=== PATIENT | male | born 1940 | race Caucasian/White ===

== ENCOUNTER → 2017-11-15 | Outpatient (CLI) | payer MEDICARE, BC ==
[~2017-11-15] MED LIST: ARICEPT 5 MG TAB5 MG PO; ASPIR 8181 MG PO; COUMADIN 1MG TAB1 M1 PO; COUMADIN 5 MG TA5 M1 PO; ENOXAPARIN40 MG/0.1 SUBQ; FLOMAX0.4 MG PO; LIPITOR10 MG PO; LOPRESSOR50 PO; LUMIGAN2.5 M1 OP; OXYCODONE HCL 55 MG PO; PRESERVISION A1 EAC2 PO; SORINE 80 MG TA80 M1 PO
== END ==
LOC: M.NUC 11-10 16:56
DX: T84.033A Mechanical loosening of internal left knee prosthetic joint, initial encounter (principal); Z96.652 Presence of left artificial knee joint

== ENCOUNTER 2018-01-09 06:50 | Inpatient (IN) | payer MEDICARE, BC ==
[2017-12-29 09:15] LABS: ABSOLUTE EOSINOPHILS 0.2 thou/uL (0.0-0.7); ABSOLUTE LYMPHOCYTES 1.6 thou/uL (0.8-5.3); ABSOLUTE MONOCYTES 0.6 thou/uL (0.0-1.2); ABSOLUTE NEUTROPHILS 2.9 thou/uL (1.6-8.1); BASOPHILS 0.9 %; EOSINOPHILS 3.8 %; HEMATOCRIT 38.7 % (42.0-52.0); HEMOGLOBIN 12.9 gm/dL (14.0-18.0); LYMPHOCYTES 30.8 %; MCH 30.4 pg (26.0-34.0); MCHC 33.4 g/dL (28.0-37.0); MCV 90.9 fL (80.0-100.0); MONOCYTES 10.4 %; MPV 8.4 fl. (7.2-11.1); NUCLEATED RBCS 0 /100WBC; PLATELET COUNT* 169 thou/uL (150-400); POLYS 54.1 %; RBC 4.26 mil/uL (4.50-6.00); RDW-CV 14.5 % (10.5-14.5); WBC 5.3 thou/uL (4.0-11.0)
[2017-12-29 09:26] LABS: APTT 37.4 Seconds (25.0-31.3); INR 2.6; PROTIME 24.7 Seconds (9.20-11.50)
[2017-12-29 09:29] LABS: ALBUMIN 3.2 g/dL (3.4-5.0); CALCIUM 9.2 mg/dL (8.5-10.1); CREATININE 0.9 mg/dL (0.6-1.3); POTASSIUM 4.4 mmol/L (3.5-5.1); TOTAL BILIRUBIN 0.4 mg/dL (<0.1-1.0)
[2017-12-29 10:38] LABS: ESR (SEDRATE) 38 mm/hr (0-20)
[~2018-01-09] VITALS: Ht 182.9 cm; Wt 97.5 kg
[~2018-01-09 06:50] MED LIST changes: -ENOXAPARIN40 MG/0.1 SUBQ; -LUMIGAN2.5 M1 OP; -OXYCODONE HCL 55 MG PO
[2018-01-09] MEDS ORDERED: LUMIGAN2.5 M1 OP (07:39)
[2018-01-09 08:00] VITALS: BP 129/63
[2018-01-09 08:35] LABS: INR 1.2; PROTIME 11.4 Seconds (9.20-11.50)
--- NOTE | 2018-01-09 12:31 | NUR ---
DEFER ORDERS TO PT
[2018-01-09 16:00] VITALS: BP 125/64
--- NOTE | 2018-01-09 17:21 | NUR ---
PATIENT ARRIVED ON UNIT FROM PACU AT 1230. ALERT AND ORIENTED X'S 4. VITAL SIGNS AND SPO2 STABLE. IV CLEAN, FLUIDS INFUSING. PAIN WELL CONTROLLED WITH PAIN MEDS. TOLERATED DIET, NO NAUSEA AND VOMITING. VOIDED WITHOUT ISSUE. SCD'S, TEDS, YELLOW SOCKS IN PLACE. CAPNO IN PLACE. COMPLETED HOURLY ROUNDING. CALL LIGHT WITHIN REACH. WILL CONTINUE TO MONITOR.
[2018-01-09 21:00] VITALS: BP 149/72
[2018-01-10 00:09] VITALS: BP 141/74
[2018-01-10 04:31] VITALS: BP 149/69
[2018-01-10 04:57] LABS: HEMOGLOBIN 11.7 gm/dL (14.0-18.0)
--- NOTE | 2018-01-10 07:41 | NUR ---
PAGED BANDAY REGARDING CONFUSION/COMBATIVENESS/IMPULSIVENESS. BP 156/72, PULSE 79, O2 SAT 94% ON RA. ASKED IF PATIENT WOULD NEED CT OF HIS HEAD DUE TO CHANGE IN MENTAL STATUS, NO NEW ORDERS AT THIS TIME.
[2018-01-10 08:08] VITALS: BP 156/72
--- NOTE | 2018-01-10 08:08 | NUR ---
PATIENT ALERT AND ORIENTED X 3, FORGETFUL AT THE START OF THE SHIFT. IT GOT LATER IN THE NIGHT PATIENT BECAME MORE CONFUSED. HE BEGIN TRYING TO CLIMB OUT OF BED, SWINGING HIS OPERATIVE KNEE OVER THE SIDE RAILS. PATIENT MOVED AROUND IN THE BED SO MUCH HIS SURGICAL DRESSING BECAME SATURED AND HE PULLED IT OFF. PHYSICIAN NOTIFIED OF STATUS CHANGE. ZYPREXA ORDERED AND ADMINISTERED WITH NO SUCCESS. PATIENT PULLED OUT IV AND STARTED TO HAVE MORE HALLUCINATIONS AFTER ZYPREXA. NEW SURGICAL DRESSING APPLIED, ORTHO AWARE. RESIDENT LOOKED AT INCISION THIS MORNING AND SAID ITS OK. DRAINAGE NOTED, REINFORCED BY ORTHO RESIDENT WITH ABD PADS AND ACEWRAP. PATIENT DID NOT SLEEP AT ALL AND SEEMED TO BE GETTING MORE CONFUSED. PHYSICIAN CONTACTED A SECOND TIME. THE PHYSICIAN WAS MADE AWARE THAT PATIENT WAS CLIMBING OUT OF BED AND HALLUCINATING AFTER PREVIOUS DOSE OF ZYPREXA. ORDERS WERE RECEIVED FOR AN ADDITIONAL DOSE AND THE PHYSICIAN DID NOT WANT TO DO ANY FURTHER ORDERS AT THAT TIME. I DID NOT GIVE ZYPREXA DUE TO LAST DOSE OUTCOME AND THE PATIENT WAS SLEEPING AT THAT TIME. HE ONLY SLEPT FOR MAYBE THIRTY MINUTES. NEW IV PLACED IN LEFT FOREARM, FLUIDS INFUSING PER ORDER. , JOAN, CALLED THIS MORNING TO ASK ABOUT BASLINE. JOAN STATED THAT IT IS NORMAL FOR THE PATIENT TO BE MORE CONFUSED AFTER SURGERY AND THAT SHE THINKS HE IS IN THE EARLY STAGES OF DEMENTIA. JOAN STATES THAT PATIENT HAD TO BE RESTRAINED AFTER HE HAD OPEN HEART SUGERY. PATIENT WILL BE MOVED TO A CLOSER ROOM AND NURSING WILL CLOSELY MONITOR. BED ALARM IN USE.
[2018-01-10 09:22] LABS: ABSOLUTE LYMPHOCYTES 1.6 thou/uL (0.8-5.3); ABSOLUTE MONOCYTES 1.6 thou/uL (0.0-1.2); ABSOLUTE NEUTROPHILS 6.8 thou/uL (1.6-8.1); BASOPHILS 0.3 %; LYMPHOCYTES 15.6 %; MCH 31.1 pg (26.0-34.0); MCHC 33.5 g/dL (28.0-37.0); MCV 92.8 fL (80.0-100.0); MONOCYTES 15.6 %; MPV 8.8 fl. (7.2-11.1); NUCLEATED RBCS 0 /100WBC; PLATELET COUNT* 161 thou/uL (150-400); POLYS 68.5 %; RBC 3.78 mil/uL (4.50-6.00); RDW-CV 14.4 % (10.5-14.5)
[2018-01-10 09:24] LABS: CALCIUM 8.8 mg/dL (8.5-10.1); MAGNESIUM 1.6 mg/dL (1.8-2.4); POTASSIUM 4.2 mmol/L (3.5-5.1)
--- NOTE | 2018-01-10 10:04 | NUR ---
PATIENT MOVED CLOSER TO NURSING STATION DUE TO IMPULSIVENESS. BED ALARM SET.
--- NOTE | 2018-01-10 14:25 | NUR ---
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 SW completed initial assessment, introduced self, and SW role. Pt was sleepy but talked at times; pt helped answer questions. Pt lives at home with pt ; pt drives and can help provide any assistance needed. Pt might have a RW that was his 's aunt's walker but they plan to check to make sure it is available and the appropriate size for pt. NESHA explained that one could be ordered for pt and be delivered prior to pt dc if needed. NESHA called and checked benefits with [employer] and Homa provided approval that pt is eligible and can receive walker through [employer] ph [phone] fax [phone]. SW will fax order to have ready in case pt needs RW at dc after all. Pt and pt preference for HH services at dc pt/family preference for HH that goes to [place], [facility]. NESHA faxed referral information to [facility] [phone] is fax, is phone number. SW to continue to follow to assist with safe dc planning.
[2018-01-10 16:00] VITALS: BP 150/68
--- NOTE | 2018-01-10 16:22 | NUR ---
PATIENT REMAINS DISORIENTED BUT HAS BEEN COOPERATIVE WITH THERAPY AND NURSING THIS AFTERNOON. WILL SOMETIMES ANSWER YES/NO QUESTIONS. EATING SMALL AMOUNT OF MEALS. VOIDING PER URINAL WITH SOME INCONTINENCE WELL. DRESSING TO KNEE REINFORCED BY ORTHO THIS AM, PATIENT HAS REMOVED THE MINERVA WRAP AND GAUZE TWICE THIS SHIFY. MEPILEX INTACT WITH MODERATE AMOUNT OF SANGUINEOUS DRAINAGE. REFUSED SCD'S. BED ALARM IN USE. AT BEDSIDE. WILL CONTINUE TO MONITOR.
[2018-01-10 20:00] VITALS: BP 167/74
[2018-01-10 23:47] VITALS: BP 120/69
[2018-01-11 04:18] VITALS: BP 142/64
[2018-01-11 04:23] LABS: HEMATOCRIT 32.3 % (42.0-52.0); HEMOGLOBIN 10.9 gm/dL (14.0-18.0)
--- NOTE | 2018-01-11 04:28 | NUR ---
PATIENT RESTING QUIETLY IN BED THIS AM ON HOURLY ROUNDS. ORIENTED TO SELF, CONFUSED AND FORGETFUL. 1:1 SITTER IN ROOM THROUGHOUT THE NIGHT. DENIES PAIN. DRESSING IN PLACE TO LEFT KNEE. VITALS STABLE. WILL CONTINUE TO MONITOR.
[2018-01-11 08:00] VITALS: BP 136/72
--- NOTE | 2018-01-11 12:26 | NUR ---
PT.WILL MOST PROBABLY NEED SNF AT DISCHARGE. HE IS UNSTEADY AND GETS EASILY CONFUSED. SPOKE WITH PT.AND . BOTH ARE AGREEABLE. [facility] [place]. CM WILL FAX REFERRAL AND NOTIFY SEAN/GIO.
[2018-01-11 15:41] VITALS: BP 134/62
--- NOTE | 2018-01-11 17:24 | NUR ---
PATIENT REMAINS ALERT AND ORIENTED X1. CONFUSION, BUT COOPERATIVE WITH STAFF. 1:1 OBSERVATION DISCONTINUED THIS AM AT 0930. BED ALARM/CHAIR ALARM IN USE. AT BEDSIDE. DRESSING TO LEFT KNEE DRY AND INTACT. SCD'S IN PLACE. UP TO CHAIR THIS AFTERNOON. BM THIS AM. VOIDING PER URINAL. TOLERATING MEALS. DENIES PAIN. CALL LIGHT WITHIN REACH. WILL CONTINUE TO MONITOR.
[2018-01-11 20:30] VITALS: BP 134/83
[2018-01-11 23:51] VITALS: BP 132/54
[2018-01-12 04:02] VITALS: BP 150/62
--- NOTE | 2018-01-12 06:21 | NUR ---
Confused and impulsive, he was taking off his clothes and throwing them on the floor and trying to get out of bed. He is incontinent of urine and x 2. We've had to check on him or run in there every 30 minutes or less because he sets of the bedalarm. He was so restless I had to notify Dr Weinstein and order was recieved for seroquel which did help him to relax and sleep. Vitals are stable he did request pain meds x 2 for L knee pain.
[2018-01-12 07:58] VITALS: BP 161/72
--- NOTE | 2018-01-12 08:55 | NUR ---
ASSUMED CARE OF PT AROUND 0730 THIS AM.REFER TO ASSESSMENT. PT CALM AND COOPERATIVE THIS AM. DRESSING TO LT KNEE C/D/I. NO C/O PAIN. NO CONCERNS VOICED. CLWR. WCTM.
[2018-01-12 10:59] LABS: INR 1.2; PROTIME 11.8 Seconds (9.20-11.50)
--- NOTE | 2018-01-12 11:26 | NUR ---
PT.'S NOT SURE SHE WANTS PT.TO GO TO [place]. SHE HAS HEARD GOOD THINGS ABOUT [facility] ([facility]). SPOKE WITH VIRGINIE IN ADMISSIONS AT [facility]. FAXED HER REFERRAL [facility]. MADE HER AWARE OF CONFUSION AT NIGHT. MAY GO VISIT [facility] AFTER LUNCH.
[2018-01-12] MEDS ORDERED: OXYCODONE HCL 55 MG PO (12:49)
[2018-01-12 13:27] VITALS: BP 161/72
[2018-01-12] MEDS ORDERED: ENOXAPARIN40 MG/0.1 SUBQ (13:53)
--- NOTE | 2018-01-12 14:06 | NUR ---
WENT TO VISIT [facility] AND LIKED IT. SHE WOULD LIKE TO GO THERE IF THEY WILL ACCEPT HIM. VIRGINIE CALLED BACK AND SAID THEY COULD ACCEPT PT. SHE WILL ARRANGE A VAN FOR 1529. INFORMED. BAR FROM [facility] CAME TO VISIT PT. FAXED DISCHARGE ORDERS AND COPY OF NURSES NOTES FAXED TO VIRGINIE AT THIS TIME. CHART COPIED BY [facility] TO GO WITH PT. KATIE MUSTAFA WILL CALL REPORT.
--- NOTE | 2018-01-12 15:51 | NUR ---
PT DISCHARGED AT THIS TIME WITH ALL BELONGINGS. FAMILY AT PT'S SIDE. REPORT CALLED TO NURSE AT [facility]. [facility] REQUESTING [facility] HEAD FOR PT'S CONFUSION. PHYSICIAN NOTIFIED AND STATES CONFUSION IS FROM PT'S DEMENTIA AND SUNDOWNERS. PHYSICIAN STATES HE WILL CALL NH AND RELAY THAT INFORMATION TO THEM. PT DC'D PER W/C WITH W/C VAN TRANSPORTATION. NO CONCERNS VOICED.
--- NOTE | 2018-02-15 06:50 | OP ---
[address] [address] OPERATIVE REPORT Name: STEVE ESPINO Room: [address]#: [id number] Admission: 01/09/18 Attend Phys: Adan Tilley Discharge: 01/12/18 Date of : 42 Report #: [id number] THIS REPORT FOR: //name// CC: Arturo Calloway DATE OF SERVICE: 01/09/2018 PREOPERATIVE DIAGNOSIS: Left failed patella, status post total knee arthroplasty. 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 PROCEDURE: 1. Revision of a left patella implant and left patellar realignment with a lateral release and imbrication medially. 2. Replacement of the tibial bearing. SURGEON: Kvgn Yoon DO. ANESTHESIA: General endotracheal. COMPLICATIONS: None. ANTIBIOTICS: 2 grams Ancef IVPB 30 minutes prior to incision. IMPLANTS: Vanguard asymmetric patella 34 mm x 8.5 mm, a PS tibial bearing E1 Antioxidant and a locking bar, one bag of Palacos cement. INDICATIONS: The patient is a 78-year-old male who has had a total knee arthroplasty done at a different location upwards of 15-20 years ago. He is here today as he has significant pain with flexion, extension and instability to his left knee. This has developed slowly over time. It is now intractable discomfort. He is unable to get up from a squatting position or seated position without problems. He has an audible pop to his knee. He has pain that radiates sometimes up his thigh and lateral leg. The patient clinically has a lateral tracking patella on a Circle view, osteophytic bone that is formed to the lateral patella as well overgrowing the patellar button and causing impingement and pain. The patient is here today for elective surgical intervention to try to realign his patella. Also, since his total knee was replaced a long ago, he will get a polyethylene exchange both for prophylaxis against any potential infection as well as for improving his wear to hopefully add another 10-15 years or more to the longevity of this knee replacement. All questions were answered. Risks and complications have been reviewed in detail [place] [address] OPERATIVE REPORT Name: STEVE ESPINO Room: [address]#: [id number] Admission: 01/09/18 Attend Phys: Adan Tilley Discharge: 01/12/18 Date of : 42 Report #: [id number] to neurovascular damage, infection, fracture, need for further surgery, failure of the prosthesis, recall of the prosthesis, allergy developed to prosthesis, continued lateral tracking and/or dislocation and stability of the patella with pain, noise and problems, need for a patellectomy, need for removing of the prosthesis. We have also discussed the risks of DVT, pulmonary emboli, myocardial infarction, rhabdomyolysis, even . All questions were answered. A signed informed consent has been attached to chart, may refer to and his knee is marked preoperatively for timeout technique. DESCRIPTION OF PROCEDURE: The patient was taken to the operating room suite, placed on the operating table in supine position. Following general endotracheal anesthetic, the left leg was prepped and draped in a sterile fashion. An adductor block was given preoperatively. A timeout technique is utilized to verify appropriate surgical site, procedure or concerns. An incision was then made to the left knee along the previous incision site through skin and subcutaneous tissue down to the quadriceps and extensor mechanism. The knee is then placed through range of motion, found to track laterally. There appears to be some significant atrophy to the vastus medialis. A median parapatellar incision is then performed. The patella is everted. There is heterotopic ossification throughout the quadriceps. There is overgrowth of osteophytic lipping to the lateral patella going up over the button itself. The button as well worn along its lateral aspect. The knee, otherwise is extremely stable. There is no evidence of any loosening of the patellar button and/or of the femoral component or tibial component. These were checked with osteotomes throughout and the cement interface was good. There is evidence of cystic changes at the level of the patella cement interface, but no overt loosening is noted. A saw was utilized to resect right at the base of the patellar button at the cement bone interface removing as little bone as possible. With the use of a curette, the remaining cement and plastic is removed from the previous drill holes. There are fairly significant cystic changes in superior aspect of the patella. This was curetted out, thoroughly cleaned. There is thick enough remaining bone to allow for repeat application of the patellar button. The patella was sized, copiously irrigated and then drilled for a new patella using the oblong patella. A trial was placed and the knee was placed through range of motion and found to have fairly good tracking as long as a towel clip was utilized to imbricate the medial portion of the VMO. The lateral release was performed to allow for medialization of the patella button. At this time, it was decided to proceed with an exchange of the polyethylene liner to give a new polyethylene wear. The old tibial bearing is removed by removing the locking bar, then the plastic itself. Copious irrigation carried out throughout the knee. The knee was thoroughly checked. No loose bodies were noted. The new same size polyethylene and tibial bearing is inserted. The locking bar was placed and is very stable. The one bag of Palacos cement was mixed, put onto the final patellar button as well as into the interstices of bone on the patella. The patella was then clamped into place and held with a clamp until complete cement hardening has occurred. At this time, [place] [address] OPERATIVE REPORT Name: STEVE ESPINO Room: [address]#: [id number] Admission: 01/09/18 Attend Phys: Adan Tilley Discharge: 01/12/18 Date of : 42 Report #: [id number] through range of motion and imbrication of the medial incisions line of the parapatellar incision is then made with overlapping of the most medial aspect of the VMO to the top of the patellar tendon with a #5 FiberWire suture. Once a suture was placed, knee was checked for range of motion. Next suture was placed. Knee was checked once again and so on until anatomic tracking was noted with no evidence of any problems. The remaining parapatellar incision and extensor mechanism was closed with #1 Vicryl interrupted [id number] fashion sutures followed by running #1 Quill suture. The skin was then copiously irrigated, treated with the vancomycin powder and closed with 2-0 Monocryl subcutaneous sutures followed by a running 3-0 Stratafix subcuticular suture. This was reinforced with Dermabond glue. A Mepilex dressing was applied followed by a thigh high JOHN hose. The patient tolerated the procedure well. He was taken to recovery room in stable condition. Final counts, sponge counts correct x 2. <ELECTRONICALLY SIGNED> By: Matt Yin DO 02/15/18 0650 [id number] Ketty Yoon DO /nt
== END 2018-01-12 15:45 | DRG 466 ==
LOC: M.PRE 06:50 → M.ORTHSURG 07:22 → M.TBA 07:22 → M.PRE 07:45 → M.ORTHSURG 12:45
PROVIDERS: Internal Medicine; Orthopaedic Surgery; ADMIT Internal Medicine
PROC: 0SRD0J9 Replacement of Left Knee Joint with Synthetic Substitute, Cemented, Open Approach (ICD-10-PCS; principal; 2018-01-09)
PROC: 0SPD0JZ Removal of Synthetic Substitute from Left Knee Joint, Open Approach (ICD-10-PCS; principal; 2018-01-09)
DX: T84.093A Other mechanical complication of internal left knee prosthesis, initial encounter (principal); G92 Toxic encephalopathy; F05 Delirium due to known physiological condition; I25.10 Atherosclerotic heart disease of native coronary artery without angina pectoris; E03.9 Hypothyroidism, unspecified; I10 Essential (primary) hypertension; I48.0 Paroxysmal atrial fibrillation; F03.90 Unspecified dementia, unspecified severity, without behavioral disturbance, psychotic disturbance, mood disturbance, and anxiety; E78.5 Hyperlipidemia, unspecified; Z96.651 Presence of right artificial knee joint; Y83.8 Other surgical procedures as the cause of abnormal reaction of the patient, or of later complication, without mention of misadventure at the time of the procedure; Y92.89 Other specified places as the place of occurrence of the external cause; Z95.2 Presence of prosthetic heart valve; Z95.1 Presence of aortocoronary bypass graft; Z79.01 Long term (current) use of anticoagulants; Z79.82 Long term (current) use of aspirin; Z79.899 Other long term (current) drug therapy; Z82.49 Family history of ischemic heart disease and other diseases of the circulatory system